=== PATIENT | female | born 1955 | race Caucasian/White ===

== ENCOUNTER 2016-11-09 09:44 | Inpatient (IN) | payer OTHER ==
[2016-11-07 13:18] VITALS: BMI 19.0
[2016-11-09] VITALS (8 sets, daily range): BP systolic 111–134; BP diastolic 62–83; PULSE 58–79; TEMP 36.2–36.9; O2SAT 97–99; Ht 162.6 cm; Wt 19.8 kg
[~2016-11-09] VITALS: Ht 162.6 cm; Wt 19.8 kg
[~2016-11-09 09:44] MED LIST: CEFAZOLIN 2000 MG/60 ML D5W IV SCH; ESTR1CRE TP; LACTATED RINGER'S 1000ML 1,000 ML IV SCH; LACTATED RINGER'S 1000ML 500 ML IV ONE; MULT-506 PO; PROG100C6 PO
[2016-11-09] MEDS ORDERED: FENTANYL CITRATE INJ 50 MCG/1 ML 2 ML VIAL IV PRN (11:00)
[2016-11-09] MEDS ORDERED: EpHEDrine SULFATE INJ 50 MG/ML AMP IV PRN (11:00)
[2016-11-09] MEDS ORDERED: ONDANSETRON INJ 2 MG/ML 2 ML VIAL IV PRN ×2 (11:00→13:30)
[2016-11-09] MEDS ORDERED: ATROPINE SULFATE 0.1 MG/ML 5ML SYR IV PRN (11:00)
[2016-11-09] MEDS ORDERED: HYDROmorphone INJ 1 MG/ML SYR IV PRN (11:00)
[2016-11-09] MEDS ORDERED: PROMETHAZINE HCL INJ 6.25 MG in SODIUM CHLORIDE 0.9% 50ML 50 ML IV PRN (11:00)
[2016-11-09] MEDS ORDERED: PROPOFOL IV EMULSION 10 MG/ML 20 ML VIAL IV ONE (11:05)
[2016-11-09] MEDS ORDERED: FENTANYL CITRATE INJ 50 MCG/1 ML 2 ML VIAL ONE (11:05)
[2016-11-09] MEDS ORDERED: ROCURONIUM BROMIDE 10 MG/ML 5 ML VIAL IV ONE (11:05)
[2016-11-09] MEDS ORDERED: MIDAZOLAM HCL 1 MG/ML 2ML VIAL ONE (11:05)
[2016-11-09] MEDS ORDERED: LIDOCAINE HCL 2% 2 ML VIAL (20MG/ML) ONE (11:05)
[2016-11-09] MEDS ORDERED: SUCCINYLCHOLINE CHLORIDE 20 MG/ML 10 ML VIAL IV ONE (11:05)
--- NOTE | 2016-11-09 11:17 | History & Physical Bridge Note ---
H&P Re-Evaluation Bridge Note: I have examined the patient, reviewed the History & Physical and in the interval since the performance of the History & Physical I have noted the following changes of clinical significance: No changes noted
[2016-11-09] MEDS ORDERED: BACITRACIN OINT 15 GM TUBE ONE (11:47)
[2016-11-09] MEDS ORDERED: THROMBIN 5000 UNITS KIT ONE (11:47)
[2016-11-09] MEDS ORDERED: LIDOCAINE/EPINEPHRINE 1% 20 ML VIAL ONE (11:47)
[2016-11-09] MEDS ORDERED: DEXAMETHASONE SOD INJ 4 MG/ML VIAL ONE (12:17)
[2016-11-09] MEDS ORDERED: ONDANSETRON INJ 2 MG/ML 2 ML VIAL ONE (12:17)
[2016-11-09] MEDS ORDERED: LACTATED RINGER'S 1000ML 1,000 ML IV SCH (13:24)
--- NOTE | 2016-11-09 13:24 | [facility] Operative Report ---
Operative Report Operative Date Nov 09, 2016. Pre-Operative Diagnosis Papillary thyroid carcinoma Post-Operative Diagnosis same Procedure(s) Performed Total Thyroidectomy Surgeon Dr. Springer Community Health Advisor Surgeon(s) Yanni Awan PA-C Estimated Blood Loss 5 ml Findings ~1.5 CM HARD RIGHT THYROID ISTHMUS NODULE Specimens permanent a. total thyroidectomy, double stitch right superior pole single stitch left superior pole I attest to the content of the Intraoperative Record and any orders documented therein. Any exceptions are noted below.
--- NOTE | 2016-11-09 13:28 | Discharge Instructions ---
Discharge Instructions Date of Service Nov 09, 2016. Admission Reason for Admission: Papillary Thyroid Cancer; Laryngopharyngeal Reflux Discharge Discharge Diagnosis / Problem: SAME Discharge Goals Goal(s): Therapeutic intervention Activity Recommendations Activity Limitations: as noted below LIGHT ACTIVITY FOR 2 WEEKS AND NO DRIVING WHILE ON [place] . Current Hospital Diet Patient's current hospital diet: Discharge Diet Recommended Diet: Regular Diet Procedures Procedures Performed: Total Thyroidectomy Pending Studies Studies pending at discharge: no Medical Emergencies . Who to Call and When: Medical Emergencies: If at any time you feel your situation is an emergency, please call 911 immediately. . Non-Emergent Contact Non-Emergency issues call your: Surgeon . . "Provider Documentation" section prepared by Gregor Springer. . VTE Core Measure Inpt VTE Proph given/why not?: SCD's
[2016-11-09] MEDS ORDERED: HYDROCODONE/ACETAMOPHEN 5/325MG TAB PO PRN (13:30)
--- NOTE | 2016-11-09 14:45 | Anesthesiology Progress Note ---
Anesthesia Post Op Note Date & Time Nov 09, 2016 at 14:45 Vital Signs Pain Intensity: 1 Vital Signs Past 12 Hours Date Time Temp Pulse Resp B/P (MAP) Pulse Ox O2 Delivery O2 Flow Rate FiO2 11/09/16 14:30 36.5 81 16 120/71 100 Nasal Cannula 2 11/09/16 14:15 80 14 120/73 100 Nasal Cannula 2 11/09/16 14:05 87 14 114/74 100 Nasal Cannula 3 11/09/16 13:55 88 14 122/78 100 Oxymask 10 11/09/16 13:46 36 90 14 131/76 100 Oxymask 10 11/09/16 10:20 36.4 67 18 129/75 (93) 98 Room Air Notes Mental Status: alert / awake / arousable, participated in evaluation Pt Amnestic to Procedure: Yes Nausea / Vomiting: adequately controlled Pain: adequately controlled Airway Patency, RR, SpO2: stable & adequate BP & HR: stable & adequate Hydration State: stable & adequate Anesthetic Complications: no major complications apparent
[2016-11-09] MEDS ORDERED: NURSING VERBAL MED ORDER ONE (18:45)
[2016-11-09 19:52] LABS: CALCIUM 8.8 mg/dl (8.5-10.1); PHOSPHORUS 3.3 mg/dl (2.5-4.9)
--- NOTE | 2016-11-09 20:38 | OPERATIVE REPORT ---
DATE OF OPERATION: 11/09/2016 PREOPERATIVE DIAGNOSIS: Papillary thyroid carcinoma. POSTOPERATIVE DIAGNOSIS: Papillary thyroid carcinoma. PROCEDURE: Total thyroidectomy. SURGEON: Dr. Springer. VACUUM BOTTLE ASSEMBLER: KRISTI Awan. ANESTHESIA: General endotracheal with nerve integrity monitor endotracheal tube. ESTIMATED BLOOD LOSS: 5 mL FINDINGS: 1. Approximately 1.5 cm very firm, right isthmus thyroid nodule. SPECIMENS: Total thyroidectomy for permanent pathologic assessment. DRAINS: None. COMPLICATIONS: None. INDICATIONS FOR THE PROCEDURE: The patient is a 61-year-old female with a right thyroid isthmus nodule that measured approximately 1.5 cm on ultrasound at [facility] in [place]. She underwent an ultrasound guided fine needle aspiration biopsy of this nodule at that institution, which showed malignant cells consistent with papillary thyroid carcinoma. I have recommended total thyroidectomy. She presents for the above-mentioned procedure on an inpatient elective basis. DESCRIPTION OF PROCEDURE: After informed consent had been obtained from the patient, the patient was wheeled to the operating room and placed on the operating table in the supine position. Monitors were placed. After induction of general endotracheal anesthesia with a nerve integrity monitor endotracheal tube, the patient's head and neck were gently extended and a marking pen was used to outline the planned 5 cm incision in a natural skin crease 2 fingerbreadths above the level of the clavicles. A total of 3 mL of 1% lidocaine with 1:100,000 epinephrine was used to inject the skin and subcutaneous tissues overlying the planned incision site. The skin in the neck and chest were then prepped and draped in the usual sterile fashion. A #15 scalpel was then used to make the incision through the skin, subcutaneous tissue, and platysma. Subplatysmal flaps were raised superiorly to the level of the thyroid notch and inferiorly to the level of the clavicles. The median raphe of the strap muscle was divided using Bovie electrocautery and the strap muscles retracted laterally. The right thyroid lobe was first addressed. The middle thyroid vein as well as superior and inferior thyroid vascular pedicles were divided adjacent to the thyroid capsule using a Harmonic scalpel. Dissection was carried lateral to medial with care to identify and preserve the right recurrent laryngeal nerve as well as superior and inferior parathyroid candidates. The left side was then addressed in a similar fashion. The thyroid gland was from the trachea at Pulido's ligament using a Harmonic scalpel. Orienting sutures were placed on the total thyroidectomy specimen which was sent off for permanent pathological assessment. The wound was then copiously irrigated and suctioned. Bipolar electrocautery was used to achieve adequate hemostasis. Hemostasis was confirmed with a Valsalva maneuver. Small pieces of Surgicel followed by topical spray thrombin were then placed into the bilateral tracheoesophageal grooves for added hemostatic effect. The strap muscle was then reapproximated in the midline using a simple running interlocked 3-0 Vicryl suture. The platysma was then closed with several deep 4-0 Monocryl sutures. The skin was then closed with a simple running subcuticular 5-0 Monocryl suture. The incision was cleansed and dried. Dermabond was applied to the incision. This marked the end of the case. The patient tolerated the procedure well with no apparent complications. The patient was extubated and transferred to recovery room in stable condition. I attest to the content of the Intraoperative Record and any orders documented therein. Any exception s are noted below.
[2016-11-10 01:47] LABS: CALCIUM 8.3 mg/dl (8.5-10.1); MAGNESIUM 2.2 mg/dl (1.8-2.4); PHOSPHORUS 3.5 mg/dl (2.5-4.9)
[2016-11-10 03:28] VITALS: BP 128/79; PULSE 72; TEMP 36.9; O2SAT 99
[2016-11-10] MEDS ORDERED: LEVOTHYROXINE 88 MCG TAB PO SCH (06:00)
--- NOTE | 2016-11-10 07:22 | ENT PROGRESS NOTE ---
DATE: 11/10/2016 SUBJECTIVE: The patient is postoperative day #1 status post total thyroidectomy for papillary thyroid carcinoma. The patient has no complaints this morning. She denies any perioral or digital numbness or paresthesias. PHYSICAL EXAMINATION: VITAL SIGNS: She is afebrile and her vital signs are stable. HEENT: Her voice is normal. NECK: Examination reveals that her incision is clean, dry and intact with no evidence of hematoma. LABORATORY EXAMINATIONS: Has shown that her calcium went from 8.8 to 8.3. PLAN: I would like to check her labs at 7 this morning and depending on those labs whether or not she will be discharged this morning versus later on today.
[2016-11-10 07:27] LABS: CALCIUM 8.7 mg/dl (8.5-10.1)
[2016-11-10 07:30] LABS: MAGNESIUM 2.3 mg/dl (1.8-2.4); PHOSPHORUS 3.5 mg/dl (2.5-4.9)
[2016-11-10 07:31] VITALS: BP 115/76; PULSE 60; TEMP 36.8; O2SAT 100
--- NOTE | 2016-11-10 07:40 | DISCHARGE SUMMARY ---
DATE OF DISCHARGE: 11/10/2016 ADMISSION DIAGNOSIS: Papillary thyroid carcinoma. DISCHARGE DIAGNOSIS: Papillary thyroid carcinoma status post total thyroidectomy. HOSPITAL COURSE: The patient is a 61-year-old female with a 1.5 cm right thyroid isthmus nodule for which an ultrasound guided FNA at [facility] revealed findings consistent with papillary thyroid carcinoma. She presented for total thyroidectomy on 11/09/2016 with intraoperative findings of a very firm 1.5 cm right thyroid isthmus nodule and no other suspicious nodules or lymphadenopathy. Postoperatively she did well and did not have any problems. Her postoperative calcium levels were normal. She was discharged to home on postoperative day #1 on Synthroid 88 mcg daily as well as [place] 5 mg/325 mg 1 p.o. q. 4 hours p.r.n. She was asked to call the office if she develops any numbness or tingling around her lips, fingers, or toes and/or any involuntary muscle spasms or cramps. She was asked to keep her incision dry for 1 week and keep ice on her neck as much as possible for 1 week. She has a postoperative appointment on 11/15/2016.
[2016-11-10 09:00] VITALS: BP 115/76; PULSE 60; TEMP 36.8; O2SAT 100
[2016-11-10] MEDS ORDERED: MULTIVITAMIN TAB PO SCH (09:00)
--- NOTE | 2016-11-10 09:59 | Anesthesiology Progress Note ---
Anesthesia Post Op Note Date & Time Nov 10, 2016 at 09:59 Vital Signs Pain Intensity: 3.0 Vital Signs Past 12 Hours Date Time Temp Pulse Resp B/P (MAP) Pulse Ox O2 Delivery O2 Flow Rate FiO2 11/10/16 09:00 36.8 60 16 100 Room Air 11/10/16 07:31 36.8 60 16 115/76 (89) 100 Room Air 11/10/16 03:28 36.9 72 16 128/79 (95) 99 Room Air 11/09/16 23:10 36.9 58 16 111/62 (78) 98 Room Air Notes Mental Status: alert / awake / arousable, participated in evaluation Pt Amnestic to Procedure: Yes Nausea / Vomiting: adequately controlled Pain: adequately controlled Airway Patency, RR, SpO2: stable & adequate BP & HR: stable & adequate Hydration State: stable & adequate Anesthetic Complications: no major complications apparent
== END 2016-11-10 09:50 | disposition home or self-care (01) | DRG 627 ==
LOC: C.ACU 09:44 → C.MSN 13:27 → ENRESERV 14:13
PROC: 0GTK0ZZ Resection of Thyroid Gland, Open Approach (ICD-10-PCS; principal; 2016-11-09 11:15)
DX: C73 Malignant neoplasm of thyroid gland (principal)